=== PATIENT | male | born 1980 | race African-American/Black ===

== ENCOUNTER 2022-01-14 14:39 | Inpatient (IN) | payer OTHER ==
[2022-01-14 15:25] VITALS: BMI 27.2
[2022-01-14] MEDS ORDERED: BENZOCAINE/MENTHOL (CHLORASEPTIC ) LOZENGE MM PRN (17:18)
[2022-01-14] MEDS ORDERED: DICYCLOMINE HCL 10 MG CAPSULE PO PRN (17:18)
[2022-01-14] MEDS ORDERED: IBUPROFEN 600 MG TABLET (FP) PO PRN (17:18)
[2022-01-14] MEDS ORDERED: NALOXONE HCL (KLOXXADO) 8 MG SPRAY NS PRN (17:18)
[2022-01-14] MEDS ORDERED: ONDANSETRON *ODT* 4 MG TABLET SL PRN (17:18)
[2022-01-14] MEDS ORDERED: NICOTINE 10 MG CARTRIDGE (INHALER) IH PRN (17:18)
[2022-01-14] MEDS ORDERED: LOPERAMIDE HCL 2 MG CAPSULE PO PRN (17:18)
[2022-01-14] MEDS ORDERED: chlordiazePOXIDE HCL 25 MG CAPSULE PO PRN (17:18)
[2022-01-14] MEDS ORDERED: BISMUTH SUBSALICYLATE 524 MG/30 ML PO PRN (17:18)
[2022-01-14] MEDS ORDERED: ACETAMINOPHEN 325 MG TABLET (FP) PO PRN ×2 (17:18)
[2022-01-14] MEDS ORDERED: IBUPROFEN 400 MG TABLET (FP) PO PRN (17:18)
[2022-01-14] MEDS ORDERED: MAGNESIUM HYDROX 2400MG/30ML ORAL SUSPENSION 30 ML CUP PO PRN (17:18)
[2022-01-14] MEDS ORDERED: MAGNESIUM CITRATE 300 ML BOTTLE PO PRN (17:18)
[2022-01-14] MEDS ORDERED: chlordiazePOXIDE HCL 25 MG CAPSULE PO ONE (17:37)
[2022-01-14] MEDS ORDERED: chlordiazePOXIDE HCL 25 MG CAPSULE ONE (17:43)
[2022-01-14] MEDS: PRENATAL VITAMINS W/ FOLIC ACID TABLET (FP) PO SCH (19:15)
[2022-01-14] MEDS: THIAMINE HCL 100 MG TABLET (FP) PO SCH (22:20)
[2022-01-14] MEDS: hydrOXYzine PAMOATE 25 MG CAPSULE (FP) PO PRN (22:20)
[2022-01-14] MEDS: levETIRAcetam 500 MG TABLET (FP) PO SCH (22:20)
[2022-01-14] MEDS: MELATONIN 5 MG TABLETS PO SCH (22:20)
[2022-01-14] MEDS: chlordiazePOXIDE HCL 25 MG CAPSULE PO SCH (22:21)
[2022-01-14] MEDS: NICOTINE 14 MG/24 HOURS TOPICAL PATCH TD SCH (22:22)
[2022-01-14] MEDS: METHOCARBAMOL 500 MG TABLET PO PRN (22:25)
[2022-01-15] MEDS: chlordiazePOXIDE HCL 25 MG CAPSULE PO SCH ×4 (05:38→22:25)
[2022-01-15] MEDS: NICOTINE 14 MG/24 HOURS TOPICAL PATCH TD SCH (10:20)
[2022-01-15] MEDS: levETIRAcetam 500 MG TABLET (FP) PO SCH ×2 (10:20→22:24)
[2022-01-15] MEDS: PRENATAL VITAMINS W/ FOLIC ACID TABLET (FP) PO SCH (10:20)
[2022-01-15] MEDS: METHOCARBAMOL 500 MG TABLET PO PRN ×2 (10:22→17:52)
[2022-01-15 11:12] LABS: HEMATOCRIT 45.7 % (35.4-49); HEMOGLOBIN 15.8 GM/dL (11.7-16.9); MCH 30.7 pg (25.7-33.7); MCHC 34.5 g/dl (32.0-35.9); MEAN CELL VOLUME 88.9 fl (80-96); MEAN PLT VOLUME 7.8 fl (7.5-11.1); PLATELET COUNT 182 10^3/uL (134-434); RBC 5.14 M/mm3 (4.00-5.60); RDW 12.9 % (11.9-15.9); WHITE BLOOD COUNT 7.3 K/mm3 (4.0-10.0)
[2022-01-15 11:17] LABS: ALBUMIN 3.6 g/dl (3.4-5.0); BLOOD UREA NITROGEN 6.3 mg/dL (7-18); CALCIUM 9.2 mg/dL (8.5-10.1)
[2022-01-15 11:20] LABS: CREATININE 0.8 mg/dL (0.55-1.3)
[2022-01-15 11:22] LABS: BILIRUBIN,TOTAL 0.9 mg/dL (0.2-1); TOT PROT 6.9 g/dl (6.4-8.2)
[2022-01-15] MEDS: MAG HYDROX/AL HYDROX/SIMETH 30 ML UNIT-DOSE CUP PO PRN ×2 (17:28→22:25)
[2022-01-15] MEDS: THIAMINE HCL 100 MG TABLET (FP) PO SCH (22:24)
[2022-01-15] MEDS: hydrOXYzine PAMOATE 25 MG CAPSULE (FP) PO PRN (22:24)
[2022-01-15] MEDS: MELATONIN 5 MG TABLETS PO SCH (22:25)
[2022-01-16] MEDS: chlordiazePOXIDE HCL 25 MG CAPSULE PO SCH ×4 (05:25→22:13)
[2022-01-16] MEDS: MAG HYDROX/AL HYDROX/SIMETH 30 ML UNIT-DOSE CUP PO PRN ×2 (05:26→17:52)
[2022-01-16] MEDS: levETIRAcetam 500 MG TABLET (FP) PO SCH ×2 (10:24→22:13)
[2022-01-16] MEDS: PRENATAL VITAMINS W/ FOLIC ACID TABLET (FP) PO SCH (10:24)
[2022-01-16] MEDS: NICOTINE 14 MG/24 HOURS TOPICAL PATCH TD SCH (10:24)
[2022-01-16] MEDS: THIAMINE HCL 100 MG TABLET (FP) PO SCH (22:13)
[2022-01-16] MEDS: MELATONIN 5 MG TABLETS PO SCH (22:13)
[2022-01-16] MEDS: METHOCARBAMOL 500 MG TABLET PO PRN (22:14)
[2022-01-17] MEDS ORDERED: chlordiazePOXIDE HCL 10 MG CAPSULE PO PRN
[2022-01-17] MEDS: chlordiazePOXIDE HCL 10 MG CAPSULE PO SCH ×4 (05:12→22:48)
[2022-01-17] MEDS: MAG HYDROX/AL HYDROX/SIMETH 30 ML UNIT-DOSE CUP PO PRN (05:14)
[2022-01-17] MEDS: PRENATAL VITAMINS W/ FOLIC ACID TABLET (FP) PO SCH (10:59)
[2022-01-17] MEDS: levETIRAcetam 500 MG TABLET (FP) PO SCH ×2 (11:00→22:47)
[2022-01-17] MEDS: NICOTINE 14 MG/24 HOURS TOPICAL PATCH TD SCH (11:00)
[2022-01-17] MEDS: METHOCARBAMOL 500 MG TABLET PO PRN (22:47)
[2022-01-17] MEDS: MELATONIN 5 MG TABLETS PO SCH (22:47)
[2022-01-17] MEDS: THIAMINE HCL 100 MG TABLET (FP) PO SCH (22:47)
[2022-01-17] MEDS: hydrOXYzine PAMOATE 25 MG CAPSULE (FP) PO PRN (22:47)
[2022-01-18] MEDS ORDERED: chlordiazePOXIDE HCL 10 MG CAPSULE PO SCH (05:00)
[2022-01-18] MEDS: MAG HYDROX/AL HYDROX/SIMETH 30 ML UNIT-DOSE CUP PO PRN ×2 (06:31→10:25)
[2022-01-18 09:15] VITALS: TEMP 97.9
[2022-01-18] MEDS: PRENATAL VITAMINS W/ FOLIC ACID TABLET (FP) PO SCH (10:25)
[2022-01-18] MEDS: levETIRAcetam 500 MG TABLET (FP) PO SCH (10:25)
[2022-01-18] MEDS: NICOTINE 14 MG/24 HOURS TOPICAL PATCH TD SCH (10:26)
[2022-01-18 13:04] VITALS: BP 142/80; PULSE 86; RESP 19
[2022-01-19] MEDS ORDERED: chlordiazePOXIDE HCL 10 MG CAPSULE PO ONE (05:00)
== END 2022-01-18 15:36 | disposition home or self-care (01) | DRG 775 ==
LOC: YASAS 14:39 → Y3N 17:43
PROVIDERS: ADMIT Allergy & Immunology; ATTEND Surgery
PROC: HZ2ZZZZ Detoxification Services for Substance Abuse Treatment (ICD-10-PCS; principal; 2022-01-14)
DX: F10.230 Alcohol dependence with withdrawal, uncomplicated (principal); F17.210 Nicotine dependence, cigarettes, uncomplicated; Z86.69 Personal history of other diseases of the nervous system and sense organs
CPT/HCPCS: 36415; 80053; 85027; 86780; C9803-CS; U0003; U0005